=== PATIENT | male | born 1970 | race Caucasian/White ===

== ENCOUNTER 2019-04-08 07:31 | Outpatient (CLI) | payer BC ==
[2019-04-08] VITALS (20 sets, daily range): BP systolic 118–153; BP diastolic 74–96
== END 2019-04-08 23:59 | disposition home or self-care (01) ==
LOC: CARD DIAG 07:31
PROVIDERS: ATTEND Internal Medicine Cardiovascular Disease
DX: R42 Dizziness and giddiness (principal)
CPT/HCPCS: 93660